=== PATIENT | male | born 1950 | race Caucasian/White ===

== ENCOUNTER 2020-08-01 12:52 | Outpatient (REF) | payer MEDICARE, SELFPAY ==
--- NOTE | 2020-08-01 15:26 | MHC.AU.P13 ---
Adult Audiological Evaluation Date of Visit: 08/01/20 Reason for Appointment: Audiological evaluation to monitor the status of Mr. Lopez's hearing. He has a known bilateral hearing loss and uses hearing aids. He denies any significant changes to his hearing or medical history. Previous Hearing Test Results: [facility] [place], 05/27/2019- Mild to moderately severe SNHL bilaterally, with the right ear hearing worse than the left. Medical History: Medical History: Unremarkable Medical History Hearing Instrument History- Right Ear: Brine Tank Separator Operator: Phonak Model: Audeo B90-312 Serial Number: [id number] Battery Size: 312 Repair Warranty: 07/06/2021 Loss and Damage Warranty: 07/06/2021 Dispensed By: [facility] Date of Fittin04/14/2018 Hearing Instrument History- Left Ear: Brine Tank Separator Operator: Phonak Model: Audeo B90-312 Serial Number: [id number] Battery Size: 312 Warranty: 07/06/2021 Loss and Damage Warranty: 07/06/2021 Dispensed By: [facility] Date of Fittin04/14/2018 Otoscopy: Right Ear: Unremarkable Left Ear: Mostly occluding cerumen, unable to view TM Tympanometry: Right Ear: Normal Middle Ear System (Type A) Left Ear: Normal Middle Ear System (Type A) Hearing Evaluation: Transducer(s) Used: Insert Earphones Method: Conventional Audiometry Stimuli Used: Pure Tones Right Ear: Description of Hearing: Normal hearing from 250-1500 Hz, sloping to a moderately severe sensorineural hearing loss from 9601-4796 Hz. Thresholds from 4516-2581 Hz are 5-20 dBHL worse than those in the left ear. Left Ear: Description of Hearing: Mild hearing loss at 250 Hz, rising to normal hearing from 500-1000 Hz, and sloping to a mild to moderately severe sensorineural hearing loss from 5350-9351 Hz. Speech Recognition Threshold (SRT): Method Used: Monitored Live Voice Stimuli Used: Spondee Words Right Ear: 25 dBHL Left Ear: 15 dBHL Word Discrimination: Method: Recorded Lists Word Lists Used: NU-6 Right Ear: 100% at 65 dBHL Left Ear: 96% at 55 dBHL Comparison: Compared to the most recent evaluation: Hearing is stable. Recommendations: Recommendations: Audiological re-evaluation in one year. Diagnosis: Primary Diagnosis: H90.3 Bilateral Sensorineural Hearing Loss Services Performed: Services Performed: Comprehensive Audiological Evaluation (CPT 15556) Tympanometry (CPT 95058) Signature: Provider: Don Boyce, CCC-A
== END 2020-08-01 12:53 | disposition home or self-care (01) ==
LOC: HO.SH 12:52
PROVIDERS: Visit Provider Internal Medicine
DX: Z46.1 Encounter for fitting and adjustment of hearing aid (principal)
CPT/HCPCS: 92557; 92567

== ENCOUNTER 2021-08-14 10:26 | Outpatient (REF) | payer MEDICARE, SELFPAY ==
--- NOTE | 2021-08-14 12:34 | MHC.AU.AHA ---
Adult Audiological Evaluation Date of Visit: 08/14/21 Graphic Engineer Used: Not Applicable Reason for Appointment: Audiologic re-evaluation due to question of change in hearing ability. Previous Hearing Test Results: 08/01/2020 [facility] Normal to mild hearing thresholds 250-1500 Hz, dropping to an asymmetric moderately-severe high frequency sensorineural hearing loss with the right ear being 5-20 dB poorer than the left at 5993-7522 Hz. Speech understanding was 100% for the right ear at 65 dB HL and 96% for the left ear at 55 dB HL. Medical History: Medical History: High Blood Pressure, High Cholesterol Medication List: Valsartan/Hydorchlorothyizide, Atorvastatin, Amlodipine, Metoprolol, Aspirin, Multivitamin Hearing Instrument History- Right Ear: Hardboard Panel Printer: [employer] Model: Audeo B90-312 Serial Number: [id number] Battery Size: 312 Repair Warranty: 07/06/2021 Dispensed By: [facility] Date of Fittin04/14/2018 Hearing Instrument History- Left Ear: Hardboard Panel Printer: Phonak Model: [employer]o B90-312 Serial Number: [id number] Battery Size: 312 Warranty: 07/06/2021 Dispensed By: [facility] Date of Fittin04/14/2018 Otoscopy: Right Ear: Unremarkable Left Ear: Unremarkable Tympanometry: Not performed at today's visit as all previous testing has indicated normal middle ear function bilaterally. Hearing Evaluation: Transducer(s) Used: Insert Earphones Method: Conventional Audiometry Stimuli Used: Pure Tones Right Ear: Description of Hearing: Normal hearing thresholds 250-1000 Hz, sloping to a moderately-severe high frequency sensorineural hearing loss. Right ear thresholds at 9279-0707 Hz are 10-20 dB poorer than the left ear. Left Ear: Description of Hearing: Normal hearing levels 250-1000 Hz, sloping to a moderately-severe high frequency sensorineural hearing loss. Speech Recognition Threshold (SRT): Method Used: Monitored Live Voice Stimuli Used: Spondee Words Right Ear: 25 dB HL Left Ear: 25 dB HL Word Discrimination: Method: Recorded Lists Word Lists Used: NU-6 Right Ear: 92% at 65 dB HL Left Ear: 96% at 65 dB HL Comparison: Compared to the most recent evaluation: Hearing is stable. Recommendations: Hearing aid maintenance performed today. Hearing aid(s) reprogrammed with updated test results. Audiological re-evaluation in one year. Will send a reminder card. Diagnosis: Primary Diagnosis: H90.3 Bilateral Sensorineural Hearing Loss Services Performed: Comprehensive Audiological Evaluation (CPT 98007) Signature: Provider: Don Lu, CCC-A
== END 2021-08-14 10:27 | disposition home or self-care (01) ==
LOC: HO.SH 10:26
PROVIDERS: Visit Provider Internal Medicine
DX: Z01.118 Encounter for examination of ears and hearing with other abnormal findings (principal); H90.3 Sensorineural hearing loss, bilateral
CPT/HCPCS: 92557

== ENCOUNTER 2022-11-20 10:19 | Outpatient (REF) | payer MEDICARE, SELFPAY ==
--- NOTE | 2022-11-20 13:06 | MHC.AU.HFU ---
Hearing Instrument Follow-Up- Binaural Date of Visit: 11/20/22 Right Ear: Reuben Monsivais B90-312, [id number] Repair Warranty: 07/06/2021 Loss and Damage Warranty: 07/06/2021 Battery Size: 312 Building And Construction Manager: 2xS Type of Dome: Medium open Type of Wax Guard: Cerustop Dispensed By: [facility] Date of Fittin04/14/2018 Left Ear: Reuben Monsivais B90-312, [id number] Repair Warranty: 07/06/2021 Loss and Damage Warranty: 07/06/2021 Battery Size: 312 Building And Construction Manager: 2xS Type of Dome: Medium open Type of Wax Guard: Cerustop Dispensed By: [facility] Date of Fittin04/14/2018 Follow-Up Summary: The patient is here today for an updated audiogram and hearing aid check. Hearing is stable bilaterally, see audiogram for report. The patient agreed to a hearing aid cleaning/check but opted not to have his aids reprogrammed as little change in hearing is noted today. He reports no significant concerns with his hearing aids. Visual inspection of the hearing aids revealed some debris in the wax guards. I replaced domes and wax guards bilaterally. Listening check confirms clear sound from the right aid, but no sound from the left aid even with a fresh battery. No spare receivers in office but I did try the right landscape photographer on the left aid and still no sound. The start up fani plays very weak then there's no gain. I recommended sending the left aid out for repair. Patient agreed and will pay $415 at roll picker appointment. At that visit we will re-program right and left aids together to today's audiogram and ensure both aids are in good working order. Also recommend cerumen removal as non-occluding cerumen was visualized in the patient's left ear canal. Patient agreed with recommendations. Diagnosis Code(s): Primary Diagnosis: H90.3 Bilateral Sensorineural Hearing Loss Signature: Provider: Don Li, [facility]
== END 2022-11-20 10:20 | disposition home or self-care (01) ==
LOC: HO.SH 10:19
PROVIDERS: Visit Provider Internal Medicine
DX: Z01.118 Encounter for examination of ears and hearing with other abnormal findings (principal); H90.3 Sensorineural hearing loss, bilateral
CPT/HCPCS: 92557; 92567

== ENCOUNTER 2022-12-05 11:21 | Outpatient (REF) | payer SELFPAY | END 2022-12-05 11:22 | disposition home or self-care (01) | LOC: HO.HAP 11:21 | PROVIDERS: Visit Provider Internal Medicine | DX: Z46.1 Encounter for fitting and adjustment of hearing aid (principal); H90.3 Sensorineural hearing loss, bilateral | CPT/HCPCS: V5014 ==

== ENCOUNTER 2022-12-27 13:38 | Outpatient (REF) | payer SELFPAY | END 2022-12-27 13:39 | disposition home or self-care (01) | LOC: HO.HAP 13:38 | PROVIDERS: Visit Provider Internal Medicine | DX: Z46.1 Encounter for fitting and adjustment of hearing aid (principal); H90.3 Sensorineural hearing loss, bilateral | CPT/HCPCS: V5014 ==

== ENCOUNTER 2024-06-01 10:47 | Outpatient (REF) | payer MEDICARE, SELFPAY | END 2024-06-01 10:48 | disposition home or self-care (01) | LOC: HO.SH 10:47 | PROVIDERS: Visit Provider Internal Medicine | DX: Z01.118 Encounter for examination of ears and hearing with other abnormal findings (principal); H90.3 Sensorineural hearing loss, bilateral | CPT/HCPCS: 92552; 92556 ==

== ENCOUNTER 2024-06-01 11:31 | Outpatient (REF) | payer SELFPAY ==
--- NOTE | 2024-06-01 11:43 | MHC.AU.HA3 ---
Hearing Instrument Follow-Up- Binaural Date of Visit: 06/01/24 Right Ear: Theodore, Model, Color, Serial Number: Reuben Gannoneo B90-312, [id number] Flume Ride Operator Repair Warranty: 07/06/2021 Flume Ride Operator Loss and Damage Warranty: 07/06/2021 [facility] Service Plan: Battery Size: 312 Senior Ios Developer/Slim Tube: 2xS Earmold/Dome/CShell/SlimTip:m open Type of Wax Guard: Cerustop Dispensed By: [facility] Date of Fittin04/14/2018 Left Ear: Theodore, Model, Color, Serial Number: Reuben Gannoneo B90-312, [id number] Flume Ride Operator Repair Warranty: 11/27/2023 Flume Ride Operator Loss and Damage Warranty: 07/06/2021 [facility] Service Plan: Battery Size: 312 Senior Ios Developer/Slim Tube: 2xS Earmold/Dome/CShell/SlimTip: m open Type of Wax Guard: Cerustop Dispensed By: [facility] Date of Fittin04/14/2018 Follow-Up Summary: Seen for evaluation. Reports his Audeo B for the right ear has not been working so he is wearing his older Audeo Q hearing aid on the right ear. Also notes the rolled materials worker is broken on his older left Audeo Q VICENTE. Cleaned and checked Audeo Bs. Found debris in wax guards, debris in microphones. Cleaned all. Replaced domes and wax guards. Listening check positive for both aids. Renaldo opted not to replace Audeo Q rolled materials worker at this time, not worth it as he is unlikely to wear it. Briefly discussed new amplification. Renaldo will continue on with his Audeo Bs as they are both amplifying clearly at this time. Recommendations: Recommendations: Hearing instrument follow-up or maintenance as needed. Diagnosis Code(s): Primary Diagnosis: H90.3 Bilateral Sensorineural Hearing Loss Signature: Provider: Bianka Moyer, CCC-A
== END 2024-06-01 11:32 | disposition home or self-care (01) ==
LOC: HO.HAP 11:31
PROVIDERS: Visit Provider Internal Medicine
DX: Z46.1 Encounter for fitting and adjustment of hearing aid (principal); H90.3 Sensorineural hearing loss, bilateral
CPT/HCPCS: 92593